=== PATIENT | female | born 1980 | race Caucasian/White ===

== ENCOUNTER → 2017-07-27 | Outpatient (CLI) | payer OTHER ==
[~2017-07-27] MED LIST: ACYC400T PO; ALPR-411 PO; HYDR-5688 PO; MAGIC1 PO; MESA10002 PR; NORETAB3 PO; OXYC-57 PO; TRAM37.52 PO
== END | disposition home or self-care (01) ==
LOC: C.PAPS 15:35
PROVIDERS: ATTEND Physician Assistant
DX: Z01.419 Encounter for gynecological examination (general) (routine) without abnormal findings (principal)

== ENCOUNTER 2017-08-01 13:07 | Emergency (ER) | payer OTHER ==
[~2017-08-01] VITALS: Ht 162.6 cm; Wt 76.2 kg
[~2017-08-01 13:07] MED LIST changes: -ACYC400T PO; -HYDR-5688 PO; -MAGIC1 PO
[2017-08-01 13:14] VITALS: BP 165/107; PULSE 99; TEMP 36.2; O2SAT 99; Ht 162.6 cm; Wt 76.2 kg
[2017-08-01] MEDS ORDERED: HYDR-5688 PO (13:56)
[2017-08-01] MEDS ORDERED: MAGIC1 PO (13:56)
[2017-08-01] MEDS ORDERED: ACYC400T PO (13:56)
--- NOTE | 2017-08-02 13:42 | EMERGENCY ROOM VISIT NOTE ---
ED Visit Note First contact with patient: 13:19 Chief Complaint: I am having lumps and bumps on my tongue and lips. History of Present Illness: Ms. Jiménez is a 36-year-old female who ambulates into the ED complaining of ulcerations on her tongue, lip pain and swelling. Patient reports approximately 1 week ago she started developing a mild sore throat. Then she noting ulcer is a shins over the lateral border of the tongue that started approximately 4 days ago. Initially there was one lesion but now it has not circulated the lateral aspect of the tongue. This was associated with a burning pain that was initially mild but gradually increased in intensity. Then last night she started knowing redness and swelling of the lower lip. This was also associated with a burning pain. She clean the lip with peroxide and had no relief but actual worsening of her pain. Currently she still is complaining of a burning sensation on her tongue and lips. She feel this also goes into her ears and her jaw. She rates her discomfort 6/10. Her pain worsens with palpation, eating spicy and salty foods. She has not identified any alleviating factors related to the pain. She reports she has been using [id number] medications without relief of her discomfort. Additionally she does report that just approximately 1 month ago she stopped smoking. She denies fevers, chills, sweats, other skin eruptions, other skin color changes, any new oral sexual activity, sore throats, difficulty swallowing, painful talking, drooling, upper respiratory tract symptoms, shortness of breath , abdominal pain, nausea/vomiting. Review of Systems: As noted above in history of present illness. 8 body systems were reviewed and found to be negative as noted above. Past Medical History: Gastric ulcers, chronic back pain, depression, status post section and carpal tunnel release periods Current Medications: Medications Dose Route/Sig Max Daily Dose Days Date Category Dose Instructions Percocet 5MG/325MG (Oxycodone/Acetaminophen) Tab 1 Tablet PO X1 12/10/13 Reported PAIN Alprazolam 0.5 Mg Tab 0.25 Mg PO PRN 12/10/13 Reported Junel 1.10/13 (Norethindrone Acet & Eth Estra) 1 Tab Tab 1 Tab PO DAILY 12/10/13 Reported Ultracet (Tramadol-Acetaminophen) 1 Tab Tab 1 Tab PO Q8H PRN 07/09/13 Reported Canasa (Mesalamine) 1,000 Mg Sup 1,000 Mg MD HS 07/09/13 Reported Allergies to Medications: NSAIDs. Social History: Patient is currently employed; she feels safe in her home environment; she reports she stopped smoking approximately 1 month ago and admits to alcohol use. Physical Examination: Vital Signs: Date Time Temp Pulse Resp B/P (MAP) Pulse Ox O2 Delivery O2 Flow Rate FiO2 08/01/17 13:14 36.2 99 22 165/107 99 Room Air GENERAL: 36-year-old female in moderate distress due to pain, nontoxic-appearing , afebrile and hemodynamically stable. Patient is very anxious and tearful. NEUROLOGICAL: Awake, alert and oriented to person, place and time. Answering questions appropriately and following commands. Normal gait. SKIN: Warm, dry and pink. HEENT: Atraumatic and normocephalic. Sternal ears are nontender. Auditory canals are pink and patent. Tympanic membranes are not erythematous or edematous. No abnormal lesions within the auditory canal. Sclera white and conjunctiva pink. No drainage from naris. Oral cavity moist and pink. Airway is patent. The left side of the lower lip is moderately erythematous and edematous. There is a slight discoloration of the skin that appears arias within the central portion of this area. There is no lymphangitis. The lesion is quite tender to palpation. The lesion is not fluctuant. Airway is patent. Speech is normal and clear. Incirculating the tongue over the lateral border patient has multiple grayish ulcers sitting on a normal base. The tongue is not erythematous or edematous. The tongue is tender to palpation. Speech is normal and clear. Uvula is midline and no abscesses are seen. No posterior pharyngeal erythema or edema. No tonsillar hypertrophy or exudates. No cervical or submandibular lymphadenopathy. Trachea midline. No jugular venous distention. THORAX: Lungs sounds are clear to auscultation and equal bilaterally with symmetrical chest wall. ABDOMEN: Flat, soft and nontender. Positive bowel sounds in all quadrants. No guarding, rigidity or organomegaly. ED Course: Patient is assessed as noted above. Patient's medication list was reviewed. Patient was educated about today's findings and instructed on her treatment plan ; patient had multiple questions and these were answered to the best my ability and appropriately. Clinical Impression: Tongue ulcers. Lip swelling, possible herpetic lesion. Disposition: Patient discharged home in stable condition; prior to departure she was reassessed and subjectively reported she was feeling much better and rated her discomfort 2/10. Plan: Patient was placed on a sliding pain medication scale for pain including acetaminophen and [place]; she was given appropriate narcotic precautions and her name was checked in the state database and no red flags are noted. Additionally it was noted that she does take Ultracet I encouraged her not to use the Ultracet while using the [place]. Patient was prescribed Magic swizzle solution and encouraged to use 1 teaspoon every 4 hours. Patient was prescribed acyclovir 3 times a day for 10 days. Patient was encouraged to avoid putting peroxide on this area. Patient was encouraged to keep her lips moist with a lip balm but not share her lip balm or use others lip balm. Patient was encouraged to avoid salty and spicy foods for the next few days. Patient was encouraged to keep her mouth clean with brushing and flossing for 5 times a day. Patient was encouraged to follow-up family physician for recheck. Patient was encouraged to return to the ED for worsening pain, worsening swelling, increasing lesions, fevers, difficulty swallowing or any new/ concerning symptoms.
== END 2017-08-01 14:17 | disposition home or self-care (01) ==
LOC: C.EDB 13:08 → C.EDD 14:17
DX: K14.0 Glossitis (principal); K13.0 Diseases of lips; Z87.891 Personal history of nicotine dependence; Z88.8 Allergy status to other drugs, medicaments and biological substances

== ENCOUNTER → 2017-08-24 | Outpatient (CLI) | payer OTHER ==
[~2017-08-24] MED LIST changes: +HYDR-5688 PO; +MAGIC1 PO
== END | disposition home or self-care (01) ==
LOC: C.LABSPEC 13:27
PROVIDERS: ATTEND Physician Assistant
DX: Z30.430 Encounter for insertion of intrauterine contraceptive device (principal)